=== PATIENT | male | born 1955 | race Caucasian/White ===

== ENCOUNTER 2017-07-12 17:40 | Emergency (ER) | payer OTHER ==
[2017-07-12 18:28] LABS: ADD MAN DIFF? NO
[2017-07-12 18:31] LABS: BASO % 1 % (0-3); EOS # 0.1 x10^3/uL (0.0-0.7); EOS % 2 % (0-3); HEMATOCRIT 42.8 % (39.0-53.0); HEMOGLOBIN 15.1 g/dL (13.0-17.5); LYMPH # 2.6 x10^3/uL (1.0-4.8); LYMPH % 39 % (24-48); MEAN CORPUSCULAR HEMOGLOBIN 30 pg (25-35); MEAN CORPUSCULAR HGB CONC 35 g/dL (31-37); MEAN CORPUSCULAR VOLUME 86 fL (79-100); MONO # 0.6 x10^3/uL (0.0-1.1); MONO % 10 % (0-9); NEUT # 3.3 x10^3uL (1.8-7.7); NEUT % 49 % (31-73); PLATELET COUNT 233 x10^3/uL (140-400); RED BLOOD COUNT 4.97 x10^6/uL (4.30-5.70); RED CELL DISTRIBUTION WIDTH 13.3 % (11.5-14.5); WHITE BLOOD COUNT 6.7 x10^3/uL (4.0-11.0)
[2017-07-12 18:47] LABS: ANION GAP 6 (6-14); BLOOD UREA NITROGEN 15 mg/dL (8-26); CALCIUM 9.1 mg/dL (8.5-10.1); CARBON DIOXIDE 29 mmol/L (21-32); CHLORIDE 105 mmol/L (98-107); CREATININE 1.2 mg/dL (0.7-1.3); GLUCOSE 93 mg/dL (70-99); POTASSIUM 3.9 mmol/L (3.5-5.1); SODIUM 140 mmol/L (136-145)
[2017-07-12 18:52] LABS: ALBUMIN 3.8 g/dL (3.4-5.0); ALK PHOS 90 U/L (46-116); ALT (SGPT) 23 U/L (16-63); AST (SGOT) 16 U/L (15-37); DIRECT BILIRUBIN 0.1 mg/dL (0.0-0.2); LIPASE 205 U/L (73-393); MAGNESIUM 2.2 mg/dL (1.8-2.4); TOTAL BILIRUBIN 0.4 mg/dL (0.2-1.0); TOTAL PROTEIN 7.1 g/dL (6.4-8.2)
[2017-07-12 18:54] LABS: TROPONINI < 0.017 ng/mL (0.000-0.055)
[2017-07-12 18:59] LABS: CKMB INDEX 1.7 % (0-4); CKMB MASS 1.5 ng/mL (0.0-3.6); CREATINE KINASE 86 U/L (39-308)
[2017-07-12 18:59] LABS: NT-PRO BNP 26 pg/mL (0-124)
[2017-07-12 19:18] LABS: BILIRUBIN,URINE NEGATIVE (NEG); CLARITY,URINE CLEAR; COLOR,URINE YELLOW; GLUCOSE,URINE NEGATIVE (NEG); NITRITE,URINE NEGATIVE (NEG); PROTEIN,URINE NEGATIVE (NEG-TRACE)
[2017-07-12 19:23] LABS: AMPHETAMINE/METHAMPHETAMINE NEG (NEG); BARBITURATES NEG (NEG); BENZODIAZEPINES NEG (NEG); CANNABINOIDS NEG (NEG); COCAINE NEG (NEG); ETHANOL, URINE NEG (NEG); METHADONE NEG (NEG); OPIATES NEG (NEG); PHENCYCLIDINE NEG (NEG)
[2017-07-12 19:32] LABS: BACTERIA,URINE 0 /HPF (0-FEW); HYALINE CASTS, URINE FEW /HPF; RBC,URINE 0 /HPF (0-2); WBC,URINE 0 /HPF (0-4)
== END 2017-07-12 21:30 | disposition home or self-care (01) ==
LOC: ER 17:40
DX: R00.2 Palpitations (principal); E78.00 Pure hypercholesterolemia, unspecified; I10 Essential (primary) hypertension; I48.91 Unspecified atrial fibrillation; Z86.73 Personal history of transient ischemic attack (TIA), and cerebral infarction without residual deficits; F41.9 Anxiety disorder, unspecified
CPT/HCPCS: 36415; 71045; 80048; 80076; 80307; 81001; 82553; 83690; 83735; 83880; 84484; 85025; 93005; 99285-25

== ENCOUNTER → 2018-02-26 | Outpatient (CLI) | payer OTHER ==
[2017-07-12 21:15] VITALS: BP 144/98
[~2018-02-26] MED LIST: APIX5TAB PO; ASPI-482 PO; ASPI325T8 PO; ATOR20TA58 PO; CITA40TA12 PO; CITA40TA5 PO; CYCL10TA2 PO; DILT120C80 PO; HYDR-2758 PO; HYDR25CA PO; HYDR59LO TP; LISI1TAB5 PO; METO-239 PO; METO25TA4 PO; METO50TA6 PO; NITR0.4T SL; OMEP20CA5 PO; PANT40TA3 PO; PROP225T PO
--- NOTE | 2018-02-26 16:07 | KCIC ---
3 view study of both knees Clinical indications: Right knee pain for months. Left knee pain for one week. Right knee: No acute fracture or dislocation or osteolytic process is seen. Small right knee joint effusion is seen. No significant the osseous arthritic change is seen otherwise. Left knee: No acute fracture or dislocation or osteolytic process is seen. No significant osseous arthritic change is seen. Small left knee joint effusion is seen. IMPRESSION: No significant osseous abnormality of either knee is seen. Electronically signed by: Gerard Leblanc MD (02/26/2018 4:04 PM) [facility]
== END | disposition home or self-care (01) ==
LOC: KCIC 14:23
PROVIDERS: ATTEND Family Medicine
DX: M25.462 Effusion, left knee (principal)
CPT/HCPCS: 73562

== ENCOUNTER → 2019-09-04 | Outpatient (CLI) | payer OTHER ==
[2017-07-12 21:15] VITALS: BP 144/98
[~2019-09-04] MED LIST changes: -DILT120C80 PO; +DILT120C99 PO; -HYDR-2758 PO; +HYDR-2761 PO; +LISI1TAB19 PO; -LISI1TAB5 PO; -NITR0.4T SL; +NITR0.4T24 SL; -PANT40TA3 PO; +PANT40TA77 PO
[2019-09-04 08:22] LABS: ALBUMIN/GLOBULIN RATIO 1.3 (1.0-1.7); CALCIUM 8.9 mg/dL (8.5-10.1); POTASSIUM 4.4 mmol/L (3.5-5.1); TOTAL BILIRUBIN 0.7 mg/dL (0.2-1.0); TOTAL PROTEIN 7.1 g/dL (6.4-8.2)
[2019-09-04 08:36] LABS: BASO # 0.1 x10^3/uL (0.0-0.2); BASO % 1 % (0-3); EOS # 0.2 x10^3/uL (0.0-0.7); EOS % 3 % (0-3); HEMATOCRIT 46.5 % (39.0-53.0); HEMOGLOBIN 16.3 g/dL (13.0-17.5); LYMPH # 1.9 x10^3/uL (1.0-4.8); LYMPH % 29 % (24-48); MEAN CORPUSCULAR HEMOGLOBIN 33 pg (25-35); MEAN CORPUSCULAR HGB CONC 35 g/dL (31-37); MEAN CORPUSCULAR VOLUME 94 fL (79-100); MONO # 0.5 x10^3/uL (0.0-1.1); MONO % 8 % (0-9); NEUT # 3.8 x10^3/uL (1.8-7.7); NEUT % 59 % (31-73); PLATELET COUNT 245 x10^3/uL (140-400); RED BLOOD COUNT 4.93 x10^6/uL (4.30-5.70); RED CELL DISTRIBUTION WIDTH 13.4 % (11.5-14.5); WHITE BLOOD COUNT 6.4 x10^3/uL (4.0-11.0)
--- NOTE | 2019-09-04 09:12 | CARD ---
MR#: [id number] Date of Study: 09/04/2019 Ordering Physician: GILDARDO MULLINS, Referring Physician: GILDARDO MULLINS, Tech: Namita Olvera APPROVED REPORT EXAM: Two-dimensional and M-mode echocardiogram with Doppler and color Doppler. Other Information Quality : AverageHR: 61bpm INDICATION Atrial Fibrillation RISK FACTORS Hypertension 2D DIMENSIONS RVDd4.0 (2.9-3.5cm)Left Atrium(2D)3.6 (1.6-4.0cm) IVSd1.3 (0.7-1.1cm)Aortic Root(2D)3.5 (2.0-3.7cm) LVDd5.2 (3.9-5.9cm)LVOT Diameter2.2 (1.8-2.4cm) PWd1.1 (0.7-1.1cm)LVDs4.2 (2.5-4.0cm) FS (%) 19.0 %SV49.8 ml Aortic Valve AoV Peak Wilfred.103.8cm/sAoV VTI22.1cm AO Peak GR.4.3mmHgLVOT Peak Wilfred.90.0cm/s LVOT VTI 19.28cmAO Mean GR.3mmHg DEAN (VMAX)2.49vb4UIH (VTI)3.19cm2 Mitral Valve MV E Kjfrnzdg89.6cm/sMV DECEL JNOT320cy MV A Uabipogj50.9cm/sMV E Mean Gr.1mmHg MV PZT91anB/A Ratio1.3 MVA (PHT)3.77cm2 TDI E/Lateral E'9.2E/Medial E'10.4 Pulmonary Valve PV Peak Icmberyo04.1cm/sPV Peak Grad.3mmHg Tricuspid Valve TR P. Tfzwpehl803or/sRAP WPCHEGUY7elAc TR Peak Gr.92fxFvHDWA33iuTw Pulmonary Vein S1 Dragmvpn32.5cm/sD2 Jwowdsal18.6cm/s PVa xlveacic990vggi LEFT VENTRICLE The left ventricle is normal size. There is borderline concentric left ventricular hypertrophy. The l eft ventricular systolic function is normal. The Ejection Fraction is 55-60%. There is normal LV segm ental wall motion. Transmitral Doppler flow pattern is Grade II-pseudonormal filling dynamics. RIGHT VENTRICLE The right ventricle is normal size. There is normal right ventricular wall thickness. The right ventr icular systolic function is normal. ATRIA The left atrium size is normal. The right atrium size is normal. The interatrial septum is intact wit h no evidence for an atrial septal defect or patent foramen ovale as noted on 2-D or Doppler imaging. AORTIC VALVE The aortic valve is normal in structure and function. Doppler and Color Flow revealed no significant aortic regurgitation. There is no significant aortic valvular stenosis. MITRAL VALVE The mitral valve is normal in structure and function. There is no evidence of mitral valve prolapse. There is no mitral valve stenosis. Doppler and Color-flow revealed trace to mild mitral regurgitation . TRICUSPID VALVE The tricuspid valve is normal in structure and function. Doppler and Color Flow revealed trace tricus pid regurgitation with an estimated PAP of 29 mmHg. There is no tricuspid valve stenosis. PULMONIC VALVE The pulmonary valve is normal in structure and function. Doppler and Color Flow revealed no pulmonic valvular regurgitation. GREAT VESSELS The aortic root is normal in size. The ascending aorta is normal in size. The IVC is normal in size a nd collapses >50% with inspiration. PERICARDIAL EFFUSION There is no evidence of significant pericardial effusion. Critical Notification Critical Value: No <Conclusion> The left ventricular systolic function is normal. The Ejection Fraction is 55-60%. There is normal LV segmental wall motion. Trace tricuspid regurgitation with an estimated PAP of 29 mmHg. There is no evidence of significant pericardial effusion. Signed by : Lorenzo Solorzano, Electronically Approved : 09/04/2019 09:11:27
== END | disposition home or self-care (01) ==
LOC: ECHO 07:36
PROVIDERS: ATTEND Internal Medicine Cardiovascular Disease
DX: I34.0 Nonrheumatic mitral (valve) insufficiency (principal); I51.7 Cardiomegaly; I48.91 Unspecified atrial fibrillation
CPT/HCPCS: 36415; 80053; 84443; 85025; 93306

== ENCOUNTER 2021-09-08 08:18 | Emergency (ER) | payer OTHER ==
[~2021-09-08] VITALS: Ht 172.7 cm; Wt 84.0 kg
[~2021-09-08 08:18] MED LIST changes: -CITA40TA5 PO; +CITA40TA6 PO; +CYCL10TA19 PO; -CYCL10TA2 PO; -LISI1TAB19 PO; +LISI1TAB37 PO
--- NOTE | 2021-09-08 08:19 | PHYS DOC ---
Past Medical History Past Medical History: A-Fib, Anxiety, High Cholesterol, Hypertension, TIA Past Surgical History: Cholecystectomy, Tonsillectomy Smoking Status: Never Smoker Alcohol Use: Occasionally Drug Use: None Adult General [facility] HPI Patient is a 65 year old male who presents with chest discomfort. Had onset of symptoms Edis night, 2 days earlier. Pain is described to be dull. Nonradiating. He does have prior history of similar symptoms which he blames on atrial fibrillation. He felt that he was having episode of atrial fibrillation when the discomfort started 2 days earlier. Currently, does not feel this way. He did have some palpitations. He does not have a history of known coronary artery disease. Regarding his atrial fibrillation, it was primarily treated with ablation and he reports has mostly been successful. He only takes aspirin daily. Review of Systems Review of Systems Constitutional: Denies fever or chills Eyes: Denies change in visual acuity HENT: Denies nasal congestion Respiratory: Denies cough or shortness of breath Cardiovascular: as documented in HPI GI: Denies abdominal pain, nausea : Denies dysuria or hematuria Musculoskeletal: Denies back pain Integument: Denies rash or skin lesions Neurologic: Denies headache Endocrine: Denies All other systems were reviewed and found to be within normal limits, except as documented in this note. Allergies Allergies Allergies Coded Allergies Type Severity Reaction Last Updated Verified morphine Adverse Reaction Intermediate chest pain/pressure 09/08/21 Yes Physical Exam Physical Exam Constitutional: Well developed, well nourished, no acute distress, non-toxic appearance HENT: Normocephalic, atraumatic, bilateral external ears normal, oropharynx moist Eyes: PERRLA, EOMI Neck: Normal range of motion Cardiovascular:Heart rate regular rhythm, no murmur Lungs & Thorax: Bilateral breath sounds clear to auscultation Skin: Warm, dry, no erythema, no rash Back: Normal ROM Extremities: No tenderness, no cyanosis, no clubbing, ROM intact, no edema Neurologic: Alert and oriented X 3 Psychologic: Affect normal Current Patient Data Vital Signs Vital Signs Date Time Temp Pulse Resp B/P (MAP) Pulse Ox O2 Delivery O2 Flow Rate FiO2 09/08/21 09:36 62 14 129/81 (97) 95 Room Air 09/08/21 08:20 98.6 98.6 Lab Values Laboratory Tests Test 09/08/21 08:35 09/08/21 10:25 White Blood Count 6.9 x10^3/uL (4.0-11.0) Red Blood Count 4.67 x10^6/uL (4.30-5.70) Hemoglobin 15.4 g/dL (13.0-17.5) Hematocrit 42.7 % (39.0-53.0) Mean Corpuscular Volume 91 fL (79-100) Mean Corpuscular Hemoglobin 33 pg (25-35) Mean Corpuscular Hemoglobin Concent 36 g/dL (31-37) Red Cell Distribution Width 13.3 % (11.5-14.5) Platelet Count 216 x10^3/uL (140-400) Neutrophils (%) (Auto) 61 % (31-73) Lymphocytes (%) (Auto) 29 % (24-48) Monocytes (%) (Auto) 8 % (0-9) Eosinophils (%) (Auto) 1 % (0-3) Basophils (%) (Auto) 1 % (0-3) Neutrophils # (Auto) 4.2 x10^3/uL (1.8-7.7) Lymphocytes # (Auto) 2.0 x10^3/uL (1.0-4.8) Monocytes # (Auto) 0.6 x10^3/uL (0.0-1.1) Eosinophils # (Auto) 0.1 x10^3/uL (0.0-0.7) Basophils # (Auto) 0.1 x10^3/uL (0.0-0.2) Sodium Level 135 mmol/L (136-145) L Potassium Level 4.0 mmol/L (3.5-5.1) Chloride Level 101 mmol/L (98-107) Carbon Dioxide Level 27 mmol/L (21-32) Anion Gap 7 (6-14) Blood Urea Nitrogen 13 mg/dL (8-26) Creatinine 1.0 mg/dL (0.7-1.3) Estimated GFR (Cockcroft-Gault) 75.5 Glucose Level 109 mg/dL (70-99) H Calcium Level 9.1 mg/dL (8.5-10.1) Troponin I High Sensitivity < 4 ng/L (4-75) L D-Dimer (Sarahy) < 0.27 ug/mlFEU Laboratory Tests 09/08/21 08:35 Laboratory Tests 09/08/21 08:35 EKG EKG 08:25: EKG is normal sinus rhythm. Normal intervals. No STEMI. No ST changes to suggest ischemia. Radiology/Procedures Radiology/Procedures [] Course & Med Decision Making Course & Med Decision Making Pertinent Labs and Imaging studies reviewed. (See chart for details) Seen and examined on arrival to his room. Currently not having palpitations. He has normal sinus rhythm. Has been having symptoms for over 24 hours. Standard work-up is ordered. 11:00: Observed in the emergency department for several hours. Troponin is not elevated. EKG is normal. He has continued to be in sinus rhythm. Does not have history of coronary artery disease. Stable for discharge from the ER. 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 Symptoms are improved at the time of discharge. Return precautions discussed and he will come back to the ER for any severely worsening symptoms during the interim between now and next follow-up appointment Delaney Disclaimer Delaney Disclaimer This electronic medical record was generated, in whole or in part, using a voice recognition dictation system. Departure Departure Impression: Primary Impression: Other chest pain Disposition: HOME / SELF CARE / HOMELESS Condition: GOOD Referrals: NATACHA DELGADO MD (PCP) Patient Instructions: Chest Pain (Nonspecific) RYLAND UGALDE DO Sep 08, 2021 08:19
[2021-09-08 08:44] LABS: BASO # 0.1 x10^3/uL (0.0-0.2); BASO % 1 % (0-3); EOS # 0.1 x10^3/uL (0.0-0.7); EOS % 1 % (0-3); HEMATOCRIT 42.7 % (39.0-53.0); HEMOGLOBIN 15.4 g/dL (13.0-17.5); LYMPH % 29 % (24-48); MEAN CORPUSCULAR HEMOGLOBIN 33 pg (25-35); MEAN CORPUSCULAR HGB CONC 36 g/dL (31-37); MEAN CORPUSCULAR VOLUME 91 fL (79-100); MONO # 0.6 x10^3/uL (0.0-1.1); MONO % 8 % (0-9); NEUT # 4.2 x10^3/uL (1.8-7.7); NEUT % 61 % (31-73); PLATELET COUNT 216 x10^3/uL (140-400); RED BLOOD COUNT 4.67 x10^6/uL (4.30-5.70); RED CELL DISTRIBUTION WIDTH 13.3 % (11.5-14.5); WHITE BLOOD COUNT 6.9 x10^3/uL (4.0-11.0)
--- NOTE | 2021-09-08 08:56 | RAD ---
Exam Date: 09/08/2021 8:34 AM XR CHEST 1V Indication: Reason: chest pain / Spl. Instructions: / History: . Comparison: July 12, 2017 FINDINGS/ IMPRESSION: The cardiac silhouette and pulmonary vasculature are within normal limits. There is no focal consolidation, pleural effusion or pneumothorax. The visualized osseous structures are intact. Electronically signed by: Bandar Be MD (09/08/2021 8:46 AM) [id number]
[2021-09-08 09:05] LABS: CALCIUM 9.1 mg/dL (8.5-10.1); GFR 75.5
[2021-09-08 11:35] VITALS: BP 128/83
--- NOTE | 2021-09-08 11:53 | EKG ---
[facility] [address] [place] [address] Test Date: 2021-09-08 Test Time: 08:23:59 Pat Name: MELANIE COX Department: Room: Gender: M Wagon Driver: : 1955 Requested By: RYLAND UGALDE Order Number: [id number] Reading MD: Gabe Garcia Measurements Intervals [place] Rate: 73 P: 56 AL: 150 QRS: -13 QRSD: 82 T: 17 QT: 378 QTc: 420 Interpretive Statements SINUS RHYTHM LEFTWARD AXIS Electronically Signed On 09-08-2021 16:15:33 CDT by Gabe Garcia
== END 2021-09-08 11:35 | disposition home or self-care (01) ==
LOC: ER 08:18
DX: R07.89 Other chest pain (principal); I48.91 Unspecified atrial fibrillation; E78.00 Pure hypercholesterolemia, unspecified; I10 Essential (primary) hypertension; Z86.73 Personal history of transient ischemic attack (TIA), and cerebral infarction without residual deficits; Z90.49 Acquired absence of other specified parts of digestive tract; Z88.5 Allergy status to narcotic agent
CPT/HCPCS: 36415; 71045; 80048; 84484; 85025; 85379; 93005; 99285-25

== ENCOUNTER → 2021-09-28 | Outpatient (CLI) | payer OTHER ==
[2021-09-08 11:35] VITALS: BP 128/83
[~2021-09-28] MED LIST changes: +REGADENOSON 0.4 MG/5 ML DISP.SYRIN. IV ONE
--- NOTE | 2021-09-28 13:27 | RAD ---
MR#: [id number] Date of Study: 09/28/2021 Ordering Physician: GILDARDO MULLINS, Referring Physician: VICKY AUSTIN Tech: URIAH Seals APPROVED REPORT Test Type: Pharmacological Stress Nurse/Tech: Karlee Almanzar RN Test Indications: Chest pain. Unable to do treadmill because it wasn't working properly. Cardiac History: Family history,previous ablation Medications: See Electronic Medical Record Medical History: See Electronic Medical Record Resting ECG: SR Resting Heart Rate: 69 bpm Resting Blood Pressure: 127/73mmHg Pretest Chest Pain: No chest pain Nurse/Tech Notes S1,S2 and lungs clear to auscultation. Consent: The procedure was explained to the patient in lay terms. Informed consent was witnessed. Alen eout was entered into [employer]. History and Stress Test performed by RT Bob (R) (N) Pharm. Details Pharmacologic stress testing was performed using 0.4mg per 5ml of regadenoson given intravenously ove r 7-10 seconds. Stress Symptoms Dyspnea,slight chest pressure that only lasted 1.5 minutes POST EXERCISE Reason for Termination: Infusion complete Target HR: No Max HR: 94 bpm 70% of Maximum Predicted HR: 133 bpm Max Blood Pressure: 130/73mmHg Blood Pressure response to exercise: Normal blood pressure response during stress. Heart Rate response to exercise: WNL Chest Pain: Yes. see note above Arrhythmia: No. ST Change: No. INTERPRETATION Stress EKG Conclusion: Baseline EKG showed sinus rhythm. No ischemic changes at peak stress. No arr hythmias. Imaging Protocol IMAGE PROTOCOL: Rest Tc-99m/stress Tc-99m 1 day Rest: Stress: Viability: Radiopharm.Tc99m OecuizfxrLs95m Sestamibi Rkmz50sUp 32mCi Duration 15min. 13min. Img Date 09/28/2021 09/28/2021 Inj-Img Wqdq88tca. 60min. Rest Admin Site:IV - Left AntecubitalAdministrator:RT Bob (R)(N) Stress Admin Site: IV - Left AntecubitalAdministrator: [facility] STRESS DATA End Diast. Vol.101.0mlLVEDV index BSA51.0ml End Syst. Vol.26.0mlLVESV index BSA13.0ml Myocardial Pgfn221.0gEject. Lwhvggin83.0% Stress Scores Regional WT0.00Summed WT0.00 Regional WM0.00Summed WM0.00 Study quality was good. Left Ventricular size was Normal at Rest and Stress. Lung uptake was . Left Ventricular ejection fraction is 76%. The rest and stress images show normal perfusion, normal contraction and thickening. LV Perf. Quant 17 Seg. SSS3.00 17 Seg. SRS3.00 17 Seg. SDS2.00 Stress Defect Extent (% LAD)1.30Rest Defect Extent (% LAD)5.60Rev. Defect Extent (% LAD)0.00 Stress Defect Extent (% LCX) 8.80Rest Defect Extent (% LCX)0.00Rev. Defect Extent (% LCX)0.00 Stress Defect Extent (% RCA)0.00Rest Defect Extent (% RCA)0.00Rev. Defect Extent (% RCA)0.00 Stress Defect Extent (% JOSE)3.00Rest Defect Extent (% JOSE)2.40Rev. Defect Extent (% JOSE)0.00 Conclusion 1. Regadenoson cardioisotope stress test did not show any evidence of ischemia or infarct. 2. Normal left ventricular systolic function with ejection fraction calculated at 76%. 3. Low risk for cardiac events. Signed by : Lorenzo Solorzano, Electronically Approved : 09/28/2021 13:27:28
--- NOTE | 2021-09-29 12:15 | CARD ---
MR#: [id number] Date of Study: 09/28/2021 Ordering Physician: GILDARDO MULLINS, Referring Physician: GILDARDO MULLINS, Tech: Wendy Biggs [facility] APPROVED REPORT EXAM: Two-dimensional and M-mode echocardiogram with Doppler and color Doppler. Other Information Quality : Technically LimitedHR: 71bpm Rhythm : NSR INDICATION Chest Pain 2D DIMENSIONS RVDd2.7 (2.9-3.5cm)Left Atrium(2D)3.7 (1.6-4.0cm) IVSd0.8 (0.7-1.1cm)Aortic Root(2D)3.0 (2.0-3.7cm) LVDd4.8 (3.9-5.9cm)LVOT Diameter2.3 (1.8-2.4cm) PWd1.0 (0.7-1.1cm)IVSs1.4 (0.8-1.2cm) LVDs2.7 (2.5-4.0cm)FS (%) 43.6 % PWs1.4 (0.8-1.2cm)SV79.2 ml LVEF(%)74.7 (>50%) Aortic Valve AoV Peak Wilfred.120.5cm/sAoV VTI23.3cm AO Peak GR.5.8mmHgLVOT Peak Wilfred.106.6cm/s LVOT VTI 19.84cmAO Mean GR.3mmHg DEAN (VMAX)2.82hk2HFN (VTI)3.43cm2 Mitral Valve MV E Yryvdcqw36.6cm/sMV DECEL UNHR795zg MV A Hsgsydkj53.3cm/sMV SMX47sq E/A Ratio1.3MVA (PHT)2.79cm2 TDI E/Lateral E'5.2E/Medial E'7.2 Tricuspid Valve TR P. Hgmsqutu083iy/sTR Peak Gr.21mmHg LEFT VENTRICLE The left ventricle is normal size. There is normal left ventricular wall thickness. The left ventricu lar systolic function is normal. Estimated ejection fraction 55-60%. There is normal LV segmental wa ll motion. Transmitral Doppler flow pattern is Grade II-pseudonormal filling dynamics. RIGHT VENTRICLE The right ventricle is normal size. There is normal right ventricular wall thickness. The right ventr icular systolic function is normal. ATRIA The left atrium size is normal. The right atrium size is normal. The interatrial septum is intact wit h no evidence for an atrial septal defect or patent foramen ovale as noted on 2-D or Doppler imaging. AORTIC VALVE The aortic valve is normal in structure and function. Doppler and Color Flow revealed no significant aortic regurgitation. There is no significant aortic valvular stenosis. MITRAL VALVE The mitral valve is normal in structure and function. There is no evidence of mitral valve prolapse. There is no mitral valve stenosis. Doppler and Color-flow revealed trace mitral regurgitation. TRICUSPID VALVE The tricuspid valve is normal in structure and function. Doppler and Color Flow revealed trace tricus pid regurgitation. Estimated PAP 24 mmHg. There is no tricuspid valve stenosis. PULMONIC VALVE The pulmonary valve is normal in structure and function. Doppler and Color Flow revealed no pulmonic valvular regurgitation. GREAT VESSELS The aortic root is normal in size. The ascending aorta is normal in size. The IVC is normal in size a nd collapses >50% with inspiration. PERICARDIAL EFFUSION There is no evidence of significant pericardial effusion. Critical Notification Critical Value: No <Conclusion> The left ventricular systolic function is normal. Estimated ejection fraction 55-60%. There is normal LV segmental wall motion. Transmitral Doppler flow pattern is Grade II-pseudonormal filling dynamics. Trace mitral regurgitation. Trace tricuspid regurgitation. Estimated PAP 24 mmHg. There is no evidence of significant pericardial effusion. Signed by : Lorenzo Solorzano, Electronically Approved : 09/29/2021 12:14:49
== END ==
LOC: ECHO 12:00
PROVIDERS: ATTEND Internal Medicine Cardiovascular Disease
DX: R07.9 Chest pain, unspecified (principal)
CPT/HCPCS: 78452; 93017; 93306; A9500; J2785; C8929